=== PATIENT | male | born 1970 | race Caucasian/White ===

== ENCOUNTER 2016-09-25 15:55 | Emergency (ER) | payer MEDICARE, OTHER | END 2016-09-25 17:02 | disposition left against medical advice (07) | LOC: FER 15:55 | DX: M25.511 Pain in right shoulder (principal); Z53.8 Procedure and treatment not carried out for other reasons ==

== ENCOUNTER 2021-12-08 11:58 | Emergency (ER) | payer MEDICARE ==
[2021-12-08 13:17] LABS: EOSINOPHIL 4.7 % (0-5); HCT 38.1 % (42.0-52.0); HGB 12.5 g/dl (13.2-18.0); LYMPHOCYTE 27.6 % (15-48); MCH 28.9 pg (25.0-31.0); MCHC 32.8 g/dL (32.0-36.0); MCV 88.2 fL (78.0-100.0); MONOCYTE 7.6 % (0-12); MPV 9.5 fL (6.0-9.5); NEUTROPHIL 58.8 % (41-80); NRBC 0; PLT 300 K/uL (150-400); RBC 4.32 M/uL (4.70-6.00); RDW 13.4 % (11.5-14.0); WBC 6.8 K/uL (4.0-10.5)
[2021-12-08 13:28] LABS: BUN/CREAT RATIO (CALC) 21.4 RATIO; CREATININE 0.84 mg/dL (0.67-1.17); POTASSIUM 4.3 mmol/L (3.5-5.1)
[2021-12-08 13:37] LABS: MARIJUANA (THC) POSITIVE (NEGATIVE)
[2021-12-08 13:38] LABS: AMPHETAMINES NEGATIVE (NEGATIVE); BARBITURATES NEGATIVE (NEGATIVE); ECSTASY (MDMA) NEGATIVE (NEGATIVE); METHADONE NEGATIVE (NEGATIVE); OPIATES NEGATIVE (NEGATIVE); OXYCODONE NEGATIVE (NEGATIVE)
[2021-12-08 14:12] LABS: CORONAVIRUS 2019 SARS-COV-2 NEGATIVE (NEGATIVE); INFLUENZA A NAA NEGATIVE (NEGATIVE)
== END 2021-12-08 14:57 | disposition home or self-care (01) ==
LOC: FER 11:58
PROVIDERS: Nurse Practitioner Family
DX: B34.9 Viral infection, unspecified (principal); Z20.822 Contact with and (suspected) exposure to COVID-19; Z88.1 Allergy status to other antibiotic agents; Z88.8 Allergy status to other drugs, medicaments and biological substances
CPT/HCPCS: 36415; 80048; 80305; 85025; 93005; U0002